=== PATIENT | female | born 1940 | race Caucasian/White ===

== ENCOUNTER → 2016-08-13 | Outpatient (CLI) | payer MEDICARE ==
[~2016-08-13] MED LIST: ADVIL200 MG PO; ASPIRIN 81MG TA81 MG PO; CALCIUM + D 5001 TAB PO; CENTRUM SILVER1 CTB PO; CO-Q10 300 MG-31 SGL PO; FLONASE 50 MCG16 GM; GABAPENTIN100 M1 PO; HYDROCHLOROTH12.5 M2 PO; LIPITOR40 MG PO; STERAPRED DS10 MG PO; SYNTHROID 0.00.05 MG PO; ZYRTEC 10MG TAB10 MG PO
--- NOTE | 2016-08-13 09:50 | RADIOLOGY REPORT PS360 ---
US RUQ-(ABD LTD)1ORGAN/QUAD/FU COMPARISON: None available HISTORY:Right upper quadrant pain ORDERING PHYSICIAN: Lobo Soriano MD PATIENT AGE: 76 years Sagittal, transverse and decubitus imaging of the gallbladder was performed. GALLBLADDER -small amount sludge is present in the gallbladder.. No stones, gallbladder wall thickening, cholecystic fluid, or biliary dilatation. Liver: Unremarkable Pancreas: Right kidney: Unremarkable appearing. No hydronephrosis. IMPRESSION: 1. Small amount of gallbladder sludge. 2. Otherwise negative right upper quadrant ultrasound
== END ==
LOC: RAD 08:22
DX: R10.11 Right upper quadrant pain (principal); K82.8 Other specified diseases of gallbladder

== ENCOUNTER → 2016-08-26 | Outpatient (CLI) | payer MEDICARE ==
--- NOTE | 2016-08-26 15:30 | RADIOLOGY REPORT PS360 ---
[facility] HEPAT[facility]IL[facility] ([facility]) HISTORY: RUQ PAIN,GB SLUDGE ORDERING PHYSICIAN: Lobo Soriano MD PATIENT AGE: 76 years COMPARISON: Ultrasound of 08/13/2016 DOSE: 8.10 mCi technetium Choletec 1.4 mcg of CCK, no pain reported with CCK infusion FINDINGS: Homogeneous activity is present within the hepatic parenchyma. Activity is present in the gallbladder by 10 minutes. Activity is present in the small bowel by 50 minutes. The gallbladder ejection fraction is calculated to be 59% which is within normal limits The patient did not report pain or other symptoms during CCK infusion. IMPRESSION: Unremarkable hepatobiliary scan and gallbladder ejection fraction. No evidence of common or cystic duct obstruction with normal gallbladder ejection fraction
== END ==
LOC: RAD 10:24
DX: R10.11 Right upper quadrant pain (principal); K82.8 Other specified diseases of gallbladder
CPT/HCPCS: A9537; J2805